=== PATIENT | male | born 1950 | race Caucasian/White ===

== ENCOUNTER → 2020-04-07 06:33 | Outpatient (CLI) | payer OTHER, SELFPAY ==
--- NOTE | 2020-04-04 13:50 | RAD_ITS ---
STUDY: X-RAY - ORBITS REASON FOR EXAM: Male, 69 years old. MRI TECHNIQUE: 2 view(s) of the orbits were obtained. COMPARISON: None. FINDINGS: Normal bilateral orbits without a metallic orbital foreign body. Normal visualized facial bones. Normal paranasal sinuses. The soft tissue structures are unremarkable. RAD/Orbits for Foreign Body IMPRESSION: No demonstrated metallic orbital foreign body. The patient is cleared for an MRI examination. Electronically Signed: Stephan Marin, at 14:07 EST , Service support ,
--- NOTE | 2020-04-07 06:44 | MRI_ITS ---
STUDY: MRI BRAIN WITH AND WITHOUT CONTRAST (ATTENTION INTERNAL AUDITORY CANALS - I.A.C.''s) REASON FOR EXAM: Male, 69 years old. gradual hearing loss L and gt;R TECHNIQUE: Standardized multiplanar fat and water weighted pulse sequences were obtained. IV 20cc dotarem was administered for the contrast portion of the examination. COMPARISON: None. FINDINGS: Normal bilateral temporal bones. Normal bilateral internal auditory canals. There is no demonstrated intracanalicular or cisternal vestibular schwannoma (acoustic neuroma). There is no enhancement of the bilateral VIIth or VIIIth cranial nerves. Normal bilateral cochlea, vestibules and semicircular canals. Normal size of the ventricles and extra-axial spaces for the patient''s age. There are a limited number of small white matter hyperintensities, distributed throughout the deep white matter tracts of the cerebral hemispheres, consistent with mild chronic white matter ischemic changes. Normal bilateral basal ganglia. Normal thalami. Normal flow voids within the major intracranial circulation suggesting patency by spin echo criteria. Normal venous enhancement. There is no enhancing intra-axial or extra-axial abnormality. There is no extra-axial fluid accumulation. Normal sella turcica, pituitary gland, infundibular stalk, optic chiasm and hypothalamus. Normal tectal plate and pineal gland. Normal midbrain, marielos and medulla. Normal cerebellum. MRI/Brain W/WO Contrast IMPRESSION: There is no demonstrated intracanalicular or cisternal vestibular schwannoma (acoustic neuroma). Electronically Signed: Oumou Cm MD at 12:12 EST Tel , Service support ,
== END ==
PROVIDERS: PCP Nurse Practitioner Adult Health; Referring Provider Otolaryngology; Visit Provider Otolaryngology
DX: H90.A22 Sensorineural hearing loss, unilateral, left ear, with restricted hearing on the contralateral side (principal)
CPT/HCPCS: 70030; 70553; A9575